=== PATIENT | female | born 1960 | race Caucasian/White ===

== ENCOUNTER → 2017-02-17 | Outpatient (CLI) | payer OTHER | LOC: CIMAGING 07:33 | PROVIDERS: ATTEND Family Medicine | DX: Z12.31 Encounter for screening mammogram for malignant neoplasm of breast (principal) | CPT/HCPCS: G0202 ==

== ENCOUNTER 2018-12-28 18:16 | Emergency (ER) | payer OTHER ==
--- NOTE | 2018-12-28 18:22 | EDPHY ---
H & P Time Seen by Provider: 12/28/18 18:22 HPI/ROS: CHIEF COMPLAINT: Wrist pain and swelling HISTORY OF PRESENT ILLNESS: This is a generally healthy 58-year-old female, right-hand dominant, who presents with right wrist pain and swelling. She has been aware of an enlargement of right wrist for the past couple of months; thought that it was bone. However, over the last 1-2 weeks this enlargement has increased in size. It has become painful. She is having some pain that extends upwards from her wrist sores right elbow. No limitation of movement of the fingers, wrist, elbow or shoulder. No numbness. No weakness. She has had no trauma. No recent illnesses/fever. REVIEW OF SYSTEMS: A ten system review of systems was performed and is negative with the exception of the items mentioned in the HPI. 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 She is here with her . She does not use tobacco products. She drinks alcohol on occasion. General Appearance: Alert. Vital signs reviewed. Focused exam was performed. ENT, Mouth: Mucous membranes are moist, no oropharyngeal erythema or edema. Neck: Nontender to palpation of the cervical spine midline. No pain with active range of motion of her neck. Respiratory: Lungs are clear to auscultation; no wheezes, rales, or rhonchi. Cardiovascular: Regular rate and rhythm; no murmur, rub, or gallop. Extremities: 1 cm swelling on the volar aspect of the wrist. No overlying redness or warmth. Neurological: Alert and oriented. Moving all four extremities easily and equally. Right b2b sales representative 5/5. She is able to flex and extend at the elbow and the wrist and also to perform ulnar and radial deviation of the wrist--albeit with pain. Full active range of motion of her right shoulder, right elbow, right wrist, and right digits. Right b2b sales representative is 5/5. Sensation intact to light touch over the right upper extremity in all dermatomes. Pulses: Radial pulses is palpable through this mass. Psychiatric: Normal affect. - Medical/Surgical History Hx Asthma: No Hx Chronic Respiratory Disease: No Hx Diabetes: No Hx Cardiac Disease: Yes Hx Renal Disease: No Hx Cirrhosis: No Hx Alcoholism: No Hx HIV/AIDS: No Hx Splenectomy or Spleen Trauma: No Other PMH: hysterectomy, ABLATION CARDIAC 2002, cataract surg 9.1.16, hyperlipidemia - Social History Smoking Status: Never smoked Constitutional: Initial Vital Signs Temperature (C) 37.1 C 12/28/18 18:21 Heart Rate 100 12/28/18 18:21 Respiratory Rate 16 12/28/18 18:21 Blood Pressure 159/85 H 12/28/18 18:21 O2 Sat (%) 95 12/28/18 18:21 O2 Delivery Mode Room Air Allergies/Adverse Reactions: acetaminophen [From Percocet] Allergy (Verified 12/28/18 18:22) Pt reports itching fluconazole [From Diflucan] Allergy (Verified 12/28/18 18:22) Pt reports swelling in mouth hydrocodone bitartrate [From Vicodin] Allergy (Verified 12/28/18 18:22) Pt reports itching, can't sleep morphine Allergy (Verified 12/28/18 18:22) Pt reports itching, can't sleep oxycodone HCl [From Percocet] Allergy (Verified 12/28/18 18:22) Pt reports itching, can't sleep Home Medications: Medication Instructions Recorded Atorvastatin Calcium 03/19/18 Medical Decision Making ED Course/Re-evaluation: Ganglion cyst right volar wrist. X-ray reviewed. No bony abnormality. She is referred to Orthopedic surgery. Pain control reviewed. She will continue with [id number] pain medications. Danger signs reviewed. Diagnostic considerations include ganglion cyst, solid tumor, lipoma, and rheumatoid nodules. Departure - Departure Disposition: Home, Routine, Self-Care Clinical Impression: Ganglion cyst Condition: Good Instructions: Ganglion Cysts (ED) Additional Instructions: Adult Pain & Fever Control: We recommend Acetaminophen (Tylenol) and Ibuprofen (Motrin,Advil) for pain and fever control. When fever is high or pain severe, both drugs can be used at the same time, but at different intervals. Please note the time differences. Your dose is: Acetaminophen 650mg every 4 to 6 hours Ibuprofen 400mg every 6 hours with food OR Naproxen Sodium (Aleve) every 12 hours. Note: do not take Acetaminophen with Hydrocodone (Vicodin, Lortab) or Oycodone (Percocet). These medications also contain Acetaminophen. No more than 3000mg of Acetaminophen should be taken in 24 hours (for an adult). Referrals: Mahin Rao MD [Medical Doctor] - As per Instructions Silvio Mitatl MD [Medical Doctor] - As per Instructions
[2018-12-28 18:25] VITALS: BP 159/85
== END 2018-12-28 18:54 | disposition home or self-care (01) ==
LOC: CED 18:16
DX: M67.411 Ganglion, right shoulder (principal)
CPT/HCPCS: 73110-PO; 99283-ER